=== PATIENT | male | born 1950 | race Caucasian/White ===

== ENCOUNTER 2017-05-25 17:25 | Observation (INO) ==
--- NOTE | 2017-05-25 18:32 | EKG Report ---
Test Performed on : 05/25/2017 6:26:41 PM Test Reason : cva Blood Pressure : / mmHG Vent. Rate : 076 BPM Atrial Rate : 076 BPM P-R Int : 144 ms QRS Dur : 088 ms QT Int : 364 ms P-R-T Axes : 047 023 034 degrees QTc Int : 409 ms Normal sinus rhythm. Normal ECG No previous ECGs available Unconfirmed Result
[2017-05-25 18:59] LABS: MANUAL DIFF NEEDED? NO
[2017-05-25 19:04] LABS: BASO% 0.8 % (0.0-0.8); EOS# 0.49 X1000 (0.0-0.7); EOS% 7.5 % (0.0-10.0); HEMATOCRIT 41.6 % (42.0-52.0); HEMOGLOBIN 14.2 g/dL (14.0-18.0); IMM GRAN# 0.01 X1000 (0.0-0.04); IMM GRAN% 0.2 % (0.0-0.5); LYMPH# 2.38 X1000 (1.2-3.4); LYMPH% 36.6 % (20.5-51.1); MCH 33.7 PG (27-31); MCHC 34.1 g/dL (33-37); MCV 98.8 FL (81-99); MONO# 0.64 X1000 (0.11-0.59); MONO% 9.8 % (1.7-9.3); MPV 11.9 FL (7.4-10.4); NEUT% 45.1 % (42.2-75.2); PLT 169 X1000 (130-400); RBC 4.21 XMIL (4.7-6.1)
--- NOTE | 2017-05-25 19:07 | Diag Imaging Result Doc PS360 ---
EXAM: CHEST-2 VIEWS INDICATION: cva TECHNIQUE: 2 views COMPARISON: None. FINDINGS: There is suggestion of minimal subsegmental atelectasis versus scarring at the left lung base. The lungs are grossly clear, otherwise. There is no discrete pleural fluid collection or pneumothorax. The cardiomediastinal silhouette and central vasculature are grossly unremarkable. IMPRESSION: Minimal left basilar subsegmental atelectasis versus scarring. No definite acute pathology, otherwise. Electronically signed by Silvino Ni 05/25/2017 7:05 PM
[2017-05-25 19:09] LABS: UR AMPHETAMINES QUAL NONE DETECTED (NONE DETECT); UR BARBITUATES QUAL NONE DETECTED (NONE DETECT); UR BENZODIAZEPIN QUAL NONE DETECTED (NONE DETECT); UR CANNABINOIDS QUAL NONE DETECTED (NONE DETECT); UR COCAINE QUAL NONE DETECTED (NONE DETECT); UR MDMA QUAL NONE DETECTED (NONE DETECT); UR METHADONE QUAL NONE DETECTED (NONE DETECT); UR METHAMPHETAMINE QUAL NONE DETECTED (NONE DETECT); UR OPIATES QUAL NONE DETECTED (NONE DETECT); UR OXYCODONE QUAL NONE DETECTED (NONE DETECT); UR PCP QUAL NONE DETECTED (NONE DETECT); UR TCA QUAL NONE DETECTED (NONE DETECT)
--- NOTE | 2017-05-25 19:15 | Diag Imaging Result Doc PS360 ---
EXAM: CT HEAD W/O CONTRAST INDICATION: Transient double /loss of vision TECHNIQUE: Dose reduction protocol was used. COMPARISON: None. 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 There is no definite acute infarct given the limited sensitivity of CT versus MRI. There is no discrete intracranial mass, mass effect, or intracranial hemorrhage. The surrounding soft tissues and bony structures including the orbits and globes are essentially unremarkable. IMPRESSION: No evidence of acute intracranial pathology. Electronically signed by Silvino Ni 05/25/2017 7:13 PM
[2017-05-25 19:26] LABS: AGAP 9; ALBUMIN 3.8 g/dL (3.5-5.0); ALKALINE PHOSPHATASE 63 U/L (32-122); BUN 12 mg/dL (8-22); CALCIUM 9.2 mg/dL (8.8-10.2); CHLORIDE 107 mmol/L (98-107); COSMO 282; GOT 17 U/L (10-34); GPT 17 U/L (10-44); SODIUM 142 mmol/L (136-145); TCO2 25 mmol/L (25-35); TOTAL PROTEIN 6.7 g/dL (6.3-8.3)
[2017-05-25 19:28] LABS: INR 0.81 (0.86-1.15); PROTIME 11.9 Seconds (12.1-15.5); PTT PL 31.3 Seconds (22.6-43.9)
--- NOTE | 2017-05-25 19:38 | PROVIDER DOCUMENTATION ---
This chart was entered by Jacey Hopper Scribe, acting as scribe for Gustabo Zhang MD. HPI-EENT General - General Chief Complaint: General Adult Stated Complaint: "BLURRED VISION" Time Seen by Provider: 05/25/17 18:07 Source: patient Allergies/Adverse Reactions: Patient Allergies Allergy/AdvReac Type Severity Reaction Status Date / Time No Known Allergies Allergy Verified 05/25/17 17:35 Home Medications: Home Medication List Medication Instructions Recorded Confirmed Last Taken Type Aspirin [Aspir-Low] 1 tab PO DAILY 05/25/17 05/25/17 Unknown History Carvedilol [Coreg] 6.25 mg PO DAILY 05/25/17 05/25/17 Unknown History Rosuvastatin Calcium [Rosuvastatin 20 mg PO DAILY 05/25/17 05/25/17 Unknown History Calcium] - History of Present Illness-EENT General Nature of Presenting Problem: 67 Y/O M presents to ED with EENT. Pt states that [place] this [place], states went into the turning [place] and states his vision went white, states he began to pull off and his sight returned but everything doubled. The lanes and cars where doubled. Pt states that his sight was fine in the ED. Pt states that he's also been having night sweats. Pt denies tingling and numbness, ataxia. EENT Location: reports: eye (R), eye (L) Severity: reports: moderate Onset/Duration: reports: just prior to arrival, this evening Timing: reports: gone now Prearrival Treatment: Initiated no prearrival treatment Associated Symptoms: reports: denies symptoms Locality of [place]: Other (driving) Similar Symptoms Previously?: No Recently seen or treated by another doctor?: No - Eyes Eye Problem Symptoms: reports: double vision, curtain Apparent Injury?: No Review of Systems - Adult - REVIEW OF SYSTEMS - ADULT Constitutional: denies: chills, fever Eyes: reports: double vision, other (white curtain) Ears, Nose, Mouth & Throat: reports: no symptoms reported Cardiovascular: reports: no symptoms reported Respiratory: reports: no symptoms reported Gastrointestinal: reports: no symptoms reported Genitourinary: reports: no symptoms reported Musculoskeletal: reports: no symptoms reported Integumentary: reports: no symptoms reported Neurological: reports: no symptoms reported Psychiatric: reports: no symptoms reported Endocrine: reports: no symptoms reported Hematologic/Lymphatic: reports: no symptoms reported Allergic/Immunologic: reports: no symptoms reported All Other Systems: Reviewed and Negative Past History - Adult - PAST MEDICAL HISTORY-ADULT Review of Records: reports: Old Records Reviewed, Nursing Assessment Review, Medications Reviewed, Social history reviewed & non-contributory. - SOCIAL HISTORY Smoking: quit greater than 1 year Substance Use: none/never Living Situation: family Physical Exam- EENT - Physical Exam EENT General Appearance: appears well, alert, no apparent distress Eye Exam: bilateral eye: normal inspection, PERRL, EOMI Ear Exam: bilateral ear: auricle normal, canal normal, TM normal Nasal Exam: normal inspection Throat Exam: normal mouth inspection, pharynx normal Neck: non-tender, full range of motion, supple, normal inspection Respiratory: chest non-tender, lungs clear, normal breath sounds Cardiovascular: normal peripheral pulses, regular rate, rhythm Abdominal Exam: normal bowel sounds, non tender, soft Lymphatic: no adenopathy Back Exam: normal inspection, no CVA tenderness, no vertebral tenderness Extremity: normal range of motion, non-tender, normal gait Integumentary: normal color, normal turgor, warm/dry Neurologic: grossly normal Psych/Mental Status: normal mood/affect, normal thought content, normal thought process, oriented x 3 Progress - PLAN OF CARE/RESULTS Progress/Plan/Lab Results: Vital Signs - 8 hr 05/25/17 17:30 Temperature 98 F Pulse Rate 83 Respiratory Rate 18 Blood Pressure 150/98 O2 Sat by Pulse Oximetry 98 Laboratory Results - last 24 hr 05/25/17 05/25/17 05/25/17 17:35 18:35 18:35 WBC RBC Hgb Hct MCV MCH MCHC RDW Std Deviation Plt Count MPV Immature Gran % (Auto) Neut % (Auto) Lymph % (Auto) [place] % (Auto) Eos % (Auto) Baso % (Auto) Immature Gran # (Auto) Neut # (Auto) Lymph # (Auto) [place] # (Auto) Eos # (Auto) Baso # (Auto) PT INR APTT (Factor Assay) Sodium 142 Potassium 4.0 Chloride 107 Carbon Dioxide 25 Anion Gap 9 BUN 12 Creatinine 1.1 Estimated GFR/1.73 m2 > 60 BUN/Creatinine Ratio 11 Glucose 84 POC Glucose 126 H Calculated Osmolality 282 Calcium 9.2 Total Bilirubin 0.30 AST 17 ALT 17 Alkaline Phosphatase 63 Troponin T < 0.010 Total Protein 6.7 Albumin 3.8 Globulin 3.0 Albumin/Globulin Ratio 1.0 Urine Opiates Screen Ur Oxycodone Screen Urine Methadone Screen Ur Barbituates Screen Ur Tricyclics Screen Ur Phencyclidine Scrn Ur Amphetamines Screen U Methamphetamines Scrn Urine MDMA Screen U Benzodiazepines Scrn Urine Cocaine Screen U Cannabinoids Screen 05/25/17 05/25/17 05/25/17 18:35 18:35 18:40 WBC 6.51 RBC 4.21 L Hgb 14.2 Hct 41.6 L MCV 98.8 MCH 33.7 H MCHC 34.1 RDW Std Deviation 12.3 Plt Count 169 MPV 11.9 H Immature Gran % (Auto) 0.2 Neut % (Auto) 45.1 Lymph % (Auto) 36.6 [place] % (Auto) 9.8 H Eos % (Auto) 7.5 Baso % (Auto) 0.8 Immature Gran # (Auto) 0.01 Neut # (Auto) 2.94 Lymph # (Auto) 2.38 [place] # (Auto) 0.64 H Eos # (Auto) 0.49 Baso # (Auto) 0.05 PT 11.9 L INR 0.81 L APTT (Factor Assay) 31.3 Sodium Potassium Chloride Carbon Dioxide Anion Gap BUN Creatinine Estimated GFR/1.73 m2 BUN/Creatinine Ratio Glucose POC Glucose Calculated Osmolality Calcium Total Bilirubin AST ALT Alkaline Phosphatase Troponin T Total Protein Albumin Globulin Albumin/Globulin Ratio Urine Opiates Screen NONE DETECTED Ur Oxycodone Screen NONE DETECTED Urine Methadone Screen NONE DETECTED Ur Barbituates Screen NONE DETECTED Ur Tricyclics Screen NONE DETECTED Ur Phencyclidine Scrn NONE DETECTED Ur Amphetamines Screen NONE DETECTED U Methamphetamines Scrn NONE DETECTED Urine MDMA Screen NONE DETECTED U Benzodiazepines Scrn NONE DETECTED Urine Cocaine Screen NONE DETECTED U Cannabinoids Screen NONE DETECTED Orders Category Date Time Status Cardiac Monitoring DIRECTED Care 05/25/17 18:17 Active Saline Loc NOW Care 05/25/17 18:17 Active CHEST-2 VIEWS [RAD] Stat Exams 05/25/17 18:[address] HEAD W/O CONTRAST [CT] Stat Exams 05/25/17 18:17 Completed CBC WITH ELECTRONIC DIFF [HEME] Stat Lab 05/25/17 18:35 Completed COMPREHENSIVE METABOLIC PANEL [CHEM] Stat Lab 05/25/17 18:35 Com[address]IME WITH INR [address] [COAG] Stat Lab 05/25/17 18:[address] [COAG] Stat Lab 05/25/17 18:35 Completed TROPONIN T Stat Lab 05/25/17 18:35 Completed URINE DRUG SCREEN PL Stat Lab 05/25/17 18:40 Completed EKG [EKG] Stat Ther 05/25/17 18:17 Draft Result Diagrams: 05/25/17 18:35 05/25/17 18:35 - XRAY 1 XRAY Study: Chest Impression: Normal XRAY Interpretation: left basilar subsegmental atelectasis versus scarring - CT/MRI 1 CT Study: Head Impression: Normal CT Results: congential dejah cisternia magna. No evidence of intracranial pathology Departure - Departure Date of Disposition Decision: 05/25/17 Time of Disposition Decision: 19:37 DIAGNOSIS: TIA (transient ischemic attack) Qualifiers: Transient cerebral ischemia type: unspecified Qualified Code(s): G45.9 - Transient cerebral ischemic attack, unspecified Disposition: HOME 01 Certified Medical Emergency: Emergent Condition: Good Referrals and Follow-Ups: Carlos Chu MD [Primary Care Provider] - - Critical Care Note This patient required my direct & personal management of CC.: No Attestation - Physician/ ADELAIDA Attestation Patient care was provided by Advanced Practice Provider:: No The physician spent face to face time with patient:: Yes Advanced Practice Provider documentation review:: Supervising physician onsite and consulted in the evaluation and care of this patient. The physician did have a face to face encounter with the patient. This chart was documented by the indicated scribe, (Jacey Hopper Scribe) and accurately reflects the services I performed and decisions made by me, Gustabo Zhang MD, as attested by the provider's signature.
[2017-05-25] MEDS ORDERED: ASPIRIN PO ONE (19:39)
[2017-05-26] MEDS ORDERED: ASPIRIN EC PO SCH (09:00)
[2017-05-26] MEDS ORDERED: COREG PO SCH (09:00)
--- NOTE | 2017-05-26 11:57 | Extremity Venous Study ---
EXAM: Carotid Ultrasound HISTORY: tia TECHNIQUE: Grayscale, duplex, and color Doppler evaluation was performed of the carotid arteries bilaterally. COMPARISON: None. FINDINGS: There is dense, calcific atherosclerotic plaque bilaterally. There are no velocity elevations to suggest hemodynamically significant carotid artery stenosis. ICA/CCA ratios are within normal limits. Bilateral vertebral arterial flow is antegrade. IMPRESSION: No evidence for hemodynamically significant carotid artery stenosis. Estimated stenosis is less than 50% bilaterally. Electronically signed by Madeleine Kelly 05/26/2017 11:55 AM
[2017-05-26 16:13] VITALS: BP 120/68
--- NOTE | 2017-05-26 16:16 | Diag Imaging Result Doc PS360 ---
EXAM: MRI BRAIN W W/O CONTRAST HISTORY: blurred vision, ?TIA TECHNIQUE: Multisequence multiplanar images with and without contrast as per standard protocol. COMPARISON: CT scan brain 05/25/2017 FINDINGS: There is moderate cerebral atrophy with prominent sulci, ventricles, and prominent posterior fossa cisterns versus posterior fossa cysts. There is no restricted diffusion to suggest acute infarct. There is increased T2 hyperintensity within the ethmoid sinuses consistent with inflammatory sinus disease. No air-fluid levels. There is no midline shift or mass effect. Globes appear normal. There are no abnormal regions of contrast enhancement. No evidence for hemorrhage. 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 2.Mild inflammatory ethmoid sinusitis. 3.No evidence for acute infarct. Electronically signed by Madeleine Kelly 05/26/2017 4:14 PM
--- NOTE | 2017-05-26 17:12 | DISCHARGE SUMMARY ---
ADMISSION DATE: 05/25/2017 DISCHARGE DATE: 05/26/2017 DISCHARGE DIAGNOSES: 1. Amaurosis fugax, resolved. 2. Transient ischemic attack, resolved. CONSULTATIONS: None. PROCEDURES: Carotid negative preliminary report. BRIEF HOSPITAL COURSE: Patient is a 67-year-old male who was admitted secondary to sudden onset of blindness. He notes that his vision came back but he is having some blurred vision. He states this lasted only a few minutes and, in fact, had completely resolved by the time he got to the ER. Currently he denies any chest pain, palpitations. Denies any fevers, chills. Denies any symptoms whatsoever. DISPOSITION: The patient will be discharged home. DISCHARGE INSTRUCTIONS: He will follow up with his primary care in 1-2 weeks. He will continue to check his blood pressures at home. Further orders as needed. cc: Moshe Jacobo MD
[2017-05-26] MEDS ORDERED: CRESTOR PO SCH (21:00)
--- NOTE | 2017-06-06 16:34 | HISTORY AND PHYSICAL ---
CHIEF COMPLAINT: Blurry vision. HISTORY OF PRESENT ILLNESS: The patient is a 67-year-old male who presented to [facility] noting that he had a sudden onset of loss of vision. [place] when the [place] happened. Noted that he has not had any headaches, did not feel uneasy, did not have any other symptoms, and all of sudden could not see to drive. States that everything immediately turned double. He notes that closing 1 eye did not alleviate any of his double vision symptoms. He was able to get pulled over and his drove him the rest of the way to the hospital. States he has been having some night sweats recently but denies any numbness, tingling, or focalized weakness. Denies any headaches. Denies any previous blurry vision or double vision. Denies any change in his vision. He denies any change in mentation. Denies any syncope. ALLERGIES: No known drug allergies. MEDICATIONS: Aspirin, Coreg 6.25, Crestor 20. REVIEW OF SYSTEMS: As noted above. Denies any previous stroke-like symptoms. Denies any previous change in his vision. Denies chest pain, palpitations. Denies fevers or chills. Denies dysuria, urinary frequency. Denies constipation, melena, hematochezia. Denies skin rashes, weight loss, or weight gain. SOCIAL HISTORY: He is . He quit smoking greater than a year ago. Does not drink or use illicit substances. PAST MEDICAL HISTORY: Significant only for high cholesterol. FAMILY HISTORY: Noncontributory. PHYSICAL EXAMINATION: VITAL SIGNS: Temperature 98, pulse 83, respiratory rate 18, BP 150/98, saturation 98% on room air. GENERAL: Patient is awake, alert, oriented. He is currently in no real respiratory distress. He is pleasant to talk with. HEENT: Normocephalic, atraumatic. ROSALVA. EOMI. Oropharynx clear. Tongue thrust normal. Uvula midline. NECK: Supple. No JVD. CV: Regular rate and rhythm. No appreciable murmurs. CHEST: Clear. Nonlabored. ABDOMEN: Soft, nondistended. EXTREMITIES: Moves all extremities well. NEUROLOGIC: No focal changes. SKIN: Warm and dry. No rashes. LABS: CBC normal. CMP normal. CT of the head shows no acute bleed no acute lesion. Chest x-ray shows left basilar atelectasis versus scarring. ASSESSMENT: 1. Acute double vision. Likely related to a transient ischemic attack, although this is completely resolved at this point. 2. High cholesterol. 3. Known history of smoking in a patient who has stopped greater than a year ago. PLAN: We will admit the patient to the hospital overnight. He certainly will need to have an MRI, carotid Doppler, echo, and a full workup. Thankfully currently his symptoms have completely resolved. cc: Moshe Jacobo MD
== END 2017-05-26 17:15 | disposition home or self-care (01) ==
LOC: P.MEDSURG 17:25 → P.ED 17:25
PROVIDERS: ATTEND Family Medicine